=== PATIENT | female | born 1945 | race Caucasian/White ===

== ENCOUNTER → 2022-04-12 | Outpatient (CLI) | payer MEDICARE, OTHER | LOC: EXRD 10:52 | DX: M81.0 Age-related osteoporosis without current pathological fracture (principal); R09.89 Other specified symptoms and signs involving the circulatory and respiratory systems; M85.852 Other specified disorders of bone density and structure, left thigh | CPT/HCPCS: 77080; 93880 ==

== ENCOUNTER → 2022-07-19 | Outpatient (CLI) | payer MEDICARE, OTHER | LOC: RAD 08:00 | DX: E78.00 Pure hypercholesterolemia, unspecified (principal); D50.9 Iron deficiency anemia, unspecified; E11.9 Type 2 diabetes mellitus without complications; E53.8 Deficiency of other specified B group vitamins; E55.9 Vitamin D deficiency, unspecified; K21.9 Gastro-esophageal reflux disease without esophagitis | CPT/HCPCS: 74221 ==